=== PATIENT | male | born 1980 | race African-American/Black ===

== ENCOUNTER 2017-06-16 21:43 | Emergency (ER) | payer MEDICAID | END 2017-06-16 23:18 | disposition home or self-care (01) | LOC: D.ER 21:43 | DX: S80.02XA Contusion of left knee, initial encounter (principal); V43.62XA Car passenger injured in collision with other type car in traffic accident, initial encounter; Y93.89 Activity, other specified; Y92.89 Other specified places as the place of occurrence of the external cause; S29.012A Strain of muscle and tendon of back wall of thorax, initial encounter; S16.1XXA Strain of muscle, fascia and tendon at neck level, initial encounter ==

== ENCOUNTER 2018-05-17 14:24 | Emergency (ER) | payer MEDICAID | END 2018-05-17 15:30 | disposition left against medical advice (07) | LOC: D.ER 14:24 | DX: Z02.9 Encounter for administrative examinations, unspecified (principal) ==